=== PATIENT | male | born 1970 | race Caucasian/White ===

== ENCOUNTER 2023-11-20 13:16 | Emergency (ER) | payer SELFPAY ==
[2023-11-20] VITALS (15 sets, daily range): BP systolic 143–171; BP diastolic 68–104; PULSE 51–86; RESP 12–20; TEMP 36.3–37.2; O2SAT 97–98; BMI 36.7
--- NOTE | ~2023-11-20 | CT_ITS ---
EXAMINATION: CT MAXILLOFACIAL WITHOUT CONTRAST CLINICAL INFORMATION: Left upper dental infection. Abscess. COMPARISON: None available. TECHNIQUE: Multidetector helical imaging was performed in the axial plane with generation of coronal and sagittal reformatted images. This CT examination was performed using dose optimization techniques as appropriate, variously including the following: *Automated exposure control *Adjustment of mA and/or kV according to patient size (this includes techniques or standardized protocols for targeted exams where dose is matched to indication/reason for exam; i.e. extremities or head) *Use of iterative reconstruction technique DLP: 536 mGy-cm FINDINGS: FRONTAL SINUSES AND DRAINAGE PATHWAYS: Mild mucosal thickening of the frontal sinuses. The frontoethmoidal recesses are patent. MAXILLARY SINUSES AND DRAINAGE PATHWAYS: Mild mucosal thickening of the maxillary sinuses. The maxillary ostia and infundibula are partially opacified but patent. ETHMOID SINUSES: Moderate mucosal thickening of the ethmoid air cells. The ethmoid roofs appear symmetric and intact. SPHENOID SINUS AND DRAINAGE PATHWAYS: Minimal mucosal thickening of the sphenoid sinus. The sphenoethmoidal recesses are patent. The carotid canals are normally covered by bone. NASAL PASSAGE: Mild mucosal thickening within the nasal passages. Moderate rightward nasal septal deviation. ORBITS: Normal appearance of the osseous orbits. The lamina papyracea are intact. No significant preseptal or retrobulbar edema. Normal appearance of the globes. Normal symmetric appearance of the extraocular musculature. No abnormalities of the intraconal or extraconal adipose tissue. Normal appearance of the optic nerve sheaths. Normal appearance of the lacrimal glands. No orbital fluid collections. No abnormalities of the orbital apices. TEMPOROMANDIBULAR JOINTS: The temporomandibular joints remain well aligned. Normal appearance of the temporomandibular joints. ADDITIONAL RELEVANT FINDINGS: No evidence of maxillofacial bone fractures. The zygomatic arches remain intact. No nasal bone fracture. No evidence of mandibular or maxillary fracture. Extensive multifocal odontogenic enamel erosions and periapical lucencies. Minimal fat stranding in the soft tissues surrounding the maxillary and mandibular alveolar processes. No demonstrated discrete peripherally enhancing collection. The premaxillary, retromaxillary, pterygopalatine fossa, temporal fossa, and parapharyngeal adipose tissue is largely maintained. No demonstrated soft tissue abnormalities within the intrinsic tissues of the tongue. The visualized mastoid air cells and middle ear cavities remain well aerated. Limited evaluation of the intracranial structures without significant abnormalities. CT/CT facial bones w IV con IMPRESSION: 1. Extensive multifocal odontogenic disease. Minimal fat stranding in the soft tissues surrounding the maxillary and mandibular alveolar processes. No demonstrated discrete peripherally enhancing collection. 2. 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 Moderate rightward nasal septal deviation. Electronically signed by: Chandler Mcleod DO 11/20/2023 08:32 PM EDT
--- NOTE | ~2023-11-20 | CT_ITS ---
EXAMINATION: CT ABDOMEN AND PELVIS WITHOUT CONTRAST CLINICAL INFORMATION: Right flank pain. Rule out stone. COMPARISON: None available. TECHNIQUE: Multidetector volumetric imaging was performed from the superior aspect of the liver through the pubic symphysis. Sagittal and coronal reformatted images were obtained on the technologist's workstation. This CT examination was performed using dose optimization techniques as appropriate, variously including the following: *Automated exposure control *Adjustment of mA and/or kV according to patient size (this includes techniques or standardized protocols for targeted exams where dose is matched to indication/reason for exam; i.e. extremities or head) *Use of iterative reconstruction technique DLP: 768 mGy-cm FINDINGS: LUNG BASES: The lung bases appear clear, with no evidence of inflammation or nodules. LIVER, GALLBLADDER, AND BILIARY TREE: The liver appears unremarkable in size, shape, and attenuation. No focal hepatic lesion or biliary ductal dilatation is appreciated. Unremarkable appearance of the gallbladder. PANCREAS: Unremarkable SPLEEN: Unremarkable ADRENAL GLANDS: Unremarkable KIDNEYS AND URETERS: The kidneys appear unremarkable in size, shape, and attenuation. No hydronephrosis, hydroureter, or calculi seen. BLADDER: Unremarkable GASTROINTESTINAL TRACT: The small and large bowel appear unremarkable. No diverticulosis. Normal-appearing distal ileum and vermiform appendix. ABDOMINAL WALL: No significant hernia is appreciated. LYMPH NODES: No evidence of adenopathy by size criteria. VASCULAR: Unremarkable PELVIC VISCERA: Unremarkable OSSEOUS STRUCTURES: Unremarkable CT/CT abdomen pelvis wo IV con IMPRESSION: Normal CT scan of the abdomen and pelvis without oral or intravenous contrast. No evidence of urinary tract stone or hydronephrosis. Electronically signed by: Elmer Franks MD 11/20/2023 05:27 PM EDT
--- NOTE | 2023-11-20 13:34 | ED.GENADULT ---
HPI - General Adult General Chief complaint: Dental/Oral Stated complaint: Abscess in mouth Time Seen by Provider: 11/20/23 14:57 Source: patient Mode of arrival: ambulatory Limitations: no limitations History of Present Illness ED Provider: PASTOR ANDERSEN PA-C HPI narrative: 53 year old male presents to the ED today for evaluation of intermittent dental pain x years, worsening over the last week. Admits to fall with facial strike while carrying his special needs child years ago. Admits to breaking all of my teeth on impact. Admits to following up with dentist at that time however was unable to afford the appropriate dental procedures. He has not followed up with dentist since. He now reports worsening pain to his left upper teeth, extending into his left cheek. Reports pain with eating. He has been taking motrin without relief. Last dose this morning. Denies fever, chills, sore throat, difficulty swallowing, headache, vision changes, eye pain. Patient also adds that he has had right flank pain x6 months with associated increased urinary frequency. Denies dysuria, hematuria, abdominal pain, N/V. Related Data Previous Rx's ?Medication ?Instructions ?Recorded chlorhexidine gluconate 0.12 % 15 ml buccal BID #120 mL 11/20/23 mouthwash clindamycin HCl 150 mg capsule 450 mg (3 x 150 mg) PO TID 10 days 11/20/23 #90 caps tramadol 50 mg tablet 50 mg PO Q6H PRN pain #12 tabs 11/20/23 Allergies Allergy/AdvReac Type Severity Reaction Status Date / Time No Known Allergies Allergy Verified 11/20/23 13:33 Review of Systems Review of Systems: Constitutional: No fever, chills, fatigue, night sweats, weight changes ENT/Mouth: No ear pain, hearing loss, nasal congestion, sinus pain, rhinorrhea, sore throat, +dental/ sinus pain Eyes: No eye pain, swelling, redness, vision changes, discharge Cardio: No chest pain, palpitations, FORMAN, orthopnea, peripheral edema Pulm: No SOB, cough, sputum, wheezing, dyspnea, hemoptysis GI: No nausea, vomiting, hematemesis, abdominal pain, diarrhea, constipation, hematochezia, melena : No irregular bleeding, dysuria, frequency, urgency, hesitancy, hematuria, flank pain, urinary flow changes, urinary incontinence or retention MSK: No back pain, neck pain, joint pain, myalgias Skin: No lesions, rashes Neuro: No weakness, numbness, paresthesias, LOC, dizziness, headache Psych: No anxiety/panic, depression, SI/HI, AH/VH All other systems reviewed and are negative. [facility] Past Medical History Attestation statement: The following information was validated with the patient. Source: old records reviewed and nursing notes reviewed Social History Social History Advance Directives: No Advance Directives Information Provided: Yes Do you have a plan to hurt others: No Plan Physical Exam ED Vital Signs: Vital Signs - 24 hr 11/20/23 13:31 11/20/23 15:43 11/20/23 16:07 Temperature 98.9 F Pulse Rate 86 74 Respiratory Rate 18 20 12 Blood Pressure 171/104 H 158/97 H Pulse Oximetry 97 97 Oxygen Delivery Method Room Air Room Air 11/20/23 16:21 11/20/23 16:23 11/20/23 16:24 Temperature 97.7 F Pulse Rate 63 65 61 Respiratory Rate 18 13 13 Blood Pressure 157/87 H 147/84 H 148/89 H Pulse Oximetry 98 98 97 Oxygen Delivery Method Room Air Room Air Room Air 11/20/23 16:57 11/20/23 17:27 11/20/23 17:42 Temperature 98.4 F Pulse Rate 59 Respiratory Rate Blood Pressure 162/86 H 160/76 H 167/68 H Pulse Oximetry Oxygen Delivery Method 11/20/23 18:06 11/20/23 18:07 11/20/23 18:12 Temperature 97.4 F Pulse Rate 51 51 52 Respiratory Rate 16 Blood Pressure 143/77 H 143/77 H 146/83 H Pulse Oximetry 98 Oxygen Delivery Method Room Air 11/20/23 18:27 11/20/23 18:59 11/20/23 20:48 Temperature 98.9 F Pulse Rate 56 62 Respiratory Rate 18 Blood Pressure 154/84 H 143/81 H 143/81 H Pulse Oximetry Oxygen Delivery Method Room Air BMI result Body Mass Index 36.7 Const General: cooperative, comfortable and no acute distress Orientation/consciousness: patient oriented x3 Limitations: no limitations HENMT Other: + No facial edema. Tongue and lips wnl + multiple dental caries, poor dentition, and broken/ missing teeth. no obvious periapical swelling to the buccal or lingual ginginva. No pointing. No active bleeding/ discharge. TTP of left upper gingiva. No palpable fluctuance. + No edema to buccal mucosa. TTP over left maxillary sinus without noted deformity or fluctuance. + Posterior oropharynx without erythema/edema. Uvula midline. Controlling secretions and speaking in complete sentences + No submandublar or submental LAD. no cervical LAD. no anterior neck swelling. Head: Yes normal to inspection, Yes No palpable skull fracture present, Yes normocephalic and Yes atraumatic Ears: hearing grossly normal bilaterally, external ears normal, EAC's normal, mastoids normal and no periauricular adenopathy Eyes General: appearance normal, both eyes and all related structures Periorbital: periorbital findings normal Pupils: Equal, round and reactive pupils present Neck Neck: Yes normal visual inspection Resp Effort & Inspection: normal respiratory effort, able to speak in complete sentences and no stridor Auscultation: clear to auscultation bilaterally Cardio Rate: regular rate Rhythm: regular rhythm Skin General skin exam: no rashes or lesions noted Neuro General: patient oriented x3 and gait normal Cranial nerves: Yes Equal, round and reactive pupils present Course Course Course Narrative: This is a rapid medical exam performed by Chichi Nieves NP: Additional HPI, ROS, PE not included below will be deferred to primary provider. Patient is a 53-year-old male presenting to the ED with complaint of pain to upper jaw just left of midline, extending up into maxillary sinus. States is unable to afford dental care. Poor dentition, exam limited in triage. Plan: may need CT Reevaluation(s) Reevaluation #1: 5884 -- CBC with leukocytosis to 13.1 with left shift. No anemia. H&H stable. Chemistry without acute electrolyte abnormality requiring intervention. No AMANDA. Lactic acid elevated 2.3. Normal liver function. UA showing trace amount of blood and RBCs, negative leukocytes or nitrites. No bacteria seen. imaging pending. > given leukocytosis, elevated lactic and suspicion for infection, sepsis protocol initiated. Blood cultures already obtained. Will empirically treat with Unasyn. IV fluids ordered. Patient receiving morphine for pain control. 1853 -- repeat lactic 1.9. CT abdomen pelvis does not demonstrate any acute intraabdominal pathology. No evidence of renal stones or obstructive uropathy. > patient stable at the end of my shift. Sign-out given to Mayelin FAIRCHILD at the end of my shift pending CT results and disposition. Time: 20:39 Reevaluation #2: Received patient in sign out from ROLANDO Smith pending facial CT. Significant delay in radiologist interpretation. No abscess noted on CT. Will discharge patient home on antibiotics and provide with list of dental clinics. CT/CT facial bones w IV con IMPRESSION: 1. Extensive multifocal odontogenic disease. Minimal fat stranding in the soft tissues surrounding the maxillary and mandibular alveolar processes. No demonstrated discrete peripherally enhancing collection. 2. 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 Moderate rightward nasal septal deviation. Medications Administered Discontinued Medications Generic Name Dose Route Start Last Admin Trade Name Freq PRN Reason Stop Dose Admin Ampicillin Sodium/Sulbactam 100 mls @ 200 mls/hr 11/20/23 15:54 11/20/23 16:35 Sodium 3 gm/ Sodium Chloride IV 11/20/23 16:23 Infused ONCE ONE Infusion Sodium Chloride 3,189 mls @ 3,189 mls/hr 11/20/23 15:54 11/20/23 17:35 Ns 30 ml/kg infuse over 1 hr (3189 ml) 11/20/23 16:53 Infused IV Infusion .Q1H STA Iohexol 85 ml 11/20/23 16:49 11/20/23 16:51 Iohexol 350 Mg/Ml 100 Ml Infus..Btl IV 11/20/23 16:50 85 ml ONCE ONE Administration Morphine Sulfate 4 mg 11/20/23 15:01 11/20/23 15:43 Morphine Sulfate 4 Mg/Ml Cartridge IVPUSH 11/20/23 15:02 4 mg ONCE ONE Administration Protocol Medical Decision Making Medical Decision Making MDM Narrative: 53 year old male presents to the ED today for evaluation of intermittent dental pain x years, worsening over the last week. Patient hypertensive, vitals otherwise wnl. Afebrile. On oral examination, there is not noted facial edema. Tongue and lips wnl. There are multiple dental caries, poor dentition, and broken/ missing teeth. no obvious periapical swelling to the buccal or lingual ginginva. No pointing. No active bleeding/ discharge. TTP of left upper gingiva. No palpable fluctuance. No edema to buccal mucosa. TTP over left maxillary sinus without noted deformity or fluctuance. Posterior oropharynx without erythema/edema. Uvula midline. Controlling secretions and speaking in complete sentences. No submandublar or submental LAD. no cervical LAD. no anterior neck swelling. Differential includes dental abscess/ infection, sinusitis, facial abscess, osteomyelitis. Unlikely apthous stomatitis, herpes, sialadenitis, sialolithiasis, [employer], retropharyngeal abscess, deep neck infection, lymphoma, ludwigs angina. Plan for labs, pain control, CT facial bones, and re-evaluation. Differential Diagnosis Differential Diagnoses: The differential diagnosis associated with the presentation includes as above. Admission/Observation Not indicated. Lab Data MDM Lab Attestation statement: I reviewed the patient's lab results. As above 11/20/23 15:25 11/20/23 15:25 Labs: Lab Results 11/20/23 11/20/23 11/20/23 Range/Units 15:25 15:42 17:35 WBC 13.1 H (4.8-10.8) X10*3/uL RBC 5.43 (4.60-5.80) X10*6/uL Hgb 15.6 (14.0-18.0) g/dl Hct 46.7 (42.0-52.0) % MCV 86.0 (80.0-98.0) fL MCH 28.7 (27.0-33.0) pg MCHC 33.4 (31.0-36.0) g/dl RDW 13.2 (11.0-16.0) % Plt Count 366 (160-400) X10*3/uL MPV 8.3 L (9.4-12.4) fL Immature Gran % (Auto) 0.5 H (0.0-0.4) % Neut % (Auto) 73.6 H (45-73) % Lymph % (Auto) 20.0 (20-40) % [place] % (Auto) 5.0 (2-11) % Eos % (Auto) 0.5 (0-4) % Baso % (Auto) 0.4 (0-2) % Lymph # (Auto) 2.6 (1.2-4.9) X10*3/uL [place] # (Auto) 0.7 (0.1-1.2) X10*3/uL Eos # (Auto) 0.1 (0.0-0.4) X10*3/uL Baso # (Auto) 0.1 (0.0-0.2) X10*3/uL Abs Immat Gran (auto) 0.06 H (0.00-0.03) X10*3/uL Absolute Neuts (auto) 9.7 H (2.0-8.3) x10*3/uL Absolute Nucleated RBC 0.000 (0.0-0.012) X10*3/uL Nucleated RBC % (auto) 0.0 (0.0-0.2) /100WBC Sodium 138 (135-145) mmol/L Potassium 3.8 (3.3-5.1) mmol/L Chloride 99 (96-108) mmol/L Carbon Dioxide 26 (22-29) mmol/L Anion Gap 17 (12-20) BUN 14 (9-16) mg/dL Creatinine 0.78 (0.5-1.4) mg/dL Estim Creat Clear Calc 130.2 Estimated GFR > 60 Random Glucose 101 (60-115) mg/dL Lactic Acid 2.3 H* (0.5-2.0) mmol/L Lactic Acid F/U @ 2Hr 1.9 (0.5-2.0) mmol/L Calcium 9.9 (8.4-10.2) mg/dL Total Bilirubin 0.2 (0.0-1.0) mg/dL AST 15 (5-37) U/L ALT 18 (0-40) U/L Alkaline Phosphatase 86 (39-117) U/L Total Protein 7.7 (6.5-8.0) g/dL Albumin 4.5 (3.5-5.0) g/dL Urine Color Yellow Urine Appearance Clear Urine pH 7.5 (5.0-9.0) Ur Specific [place] 1.015 (1.005-1.025) Urine Protein Negative (Neg-Trace) mg/dL Urine Glucose (UA) Negative (Negative) mg/dL Urine Ketones Negative (Negative) mg/dL Urine Blood Trace H (Negative) Urine Nitrite Negative (Negative) Ur Leukocyte Esterase Negative (Negative) Urine RBC 6-10 H (0-2) /HPF Urine WBC 0-5 (0-5) /HPF Ur Squamous Epith Cells 0-2 (0-2) /HPF Urine Bacteria None Seen (None Seen) Hyaline Casts 0-2 (0-2) /LPF Independent Interpretation I performed an independent interpretation of an: CT Scan Interpretation: CT facial bones without noted fluid collection, agree with radiologist's interpretation. CT abd/pelvis without ureteral calculi, agree with radiologist's interpretation. Radiology Impression Discussion of test interpretation with radiology: I have reviewed the radiologist's reading. Radiologist Impression: EXAMINATION: CT ABDOMEN AND PELVIS WITHOUT CONTRAST CLINICAL INFORMATION: Right flank pain. Rule out stone. COMPARISON: None available. TECHNIQUE: Multidetector volumetric imaging was performed from the superior aspect of the liver through the pubic symphysis. Sagittal and coronal reformatted images were obtained on the technologist's workstation. This CT examination was performed using dose optimization techniques as appropriate, variously including the following: *Automated exposure control *Adjustment of mA and/or kV according to patient size (this includes techniques or standardized protocols for targeted exams where dose is matched to indication/reason for exam; i.e. extremities or head) *Use of iterative reconstruction technique DLP: 768 mGy-cm FINDINGS: LUNG BASES: The lung bases appear clear, with no evidence of inflammation or nodules. LIVER, GALLBLADDER, AND BILIARY TREE: The liver appears unremarkable in size, shape, and attenuation. No focal hepatic lesion or biliary ductal dilatation is appreciated. Unremarkable appearance of the gallbladder. PANCREAS: Unremarkable SPLEEN: Unremarkable ADRENAL GLANDS: Unremarkable KIDNEYS AND URETERS: The kidneys appear unremarkable in size, shape, and attenuation. No hydronephrosis, hydroureter, or calculi seen. BLADDER: Unremarkable GASTROINTESTINAL TRACT: The small and large bowel appear unremarkable. No diverticulosis. Normal-appearing distal ileum and vermiform appendix. ABDOMINAL WALL: No significant hernia is appreciated. LYMPH NODES: No evidence of adenopathy by size criteria. VASCULAR: Unremarkable PELVIC VISCERA: Unremarkable OSSEOUS STRUCTURES: Unremarkable CT/CT abdomen pelvis wo IV con IMPRESSION: Normal CT scan of the abdomen and pelvis without oral or intravenous contrast. No evidence of urinary tract stone or hydronephrosis. Electronically signed by: Elmer Franks MD 11/20/2023 05:27 PM EDT EXAMINATION: CT MAXILLOFACIAL WITHOUT CONTRAST CLINICAL INFORMATION: Left upper dental infection. Abscess. COMPARISON: None available. TECHNIQUE: Multidetector helical imaging was performed in the axial plane with generation of coronal and sagittal reformatted images. This CT examination was performed using dose optimization techniques as appropriate, variously including the following: *Automated exposure control *Adjustment of mA and/or kV according to patient size (this includes techniques or standardized protocols for targeted exams where dose is matched to indication/reason for exam; i.e. extremities or head) *Use of iterative reconstruction technique DLP: 536 mGy-cm FINDINGS: FRONTAL SINUSES AND DRAINAGE PATHWAYS: Mild mucosal thickening of the frontal sinuses. The frontoethmoidal recesses are patent. MAXILLARY SINUSES AND DRAINAGE PATHWAYS: Mild mucosal thickening of the maxillary sinuses. The maxillary ostia and infundibula are partially opacified but patent. ETHMOID SINUSES: Moderate mucosal thickening of the ethmoid air cells. The ethmoid roofs appear symmetric and intact. SPHENOID SINUS AND DRAINAGE PATHWAYS: Minimal mucosal thickening of the sphenoid sinus. The sphenoethmoidal recesses are patent. The carotid canals are normally covered by bone. NASAL PASSAGE: Mild mucosal thickening within the nasal passages. Moderate rightward nasal septal deviation. ORBITS: Normal appearance of the osseous orbits. The lamina papyracea are intact. No significant preseptal or retrobulbar edema. Normal appearance of the globes. Normal symmetric appearance of the extraocular musculature. No abnormalities of the intraconal or extraconal adipose tissue. Normal appearance of the optic nerve sheaths. Normal appearance of the lacrimal glands. No orbital fluid collections. No abnormalities of the orbital apices. TEMPOROMANDIBULAR JOINTS: The temporomandibular joints remain well aligned. Normal appearance of the temporomandibular joints. ADDITIONAL RELEVANT FINDINGS: No evidence of maxillofacial bone fractures. The zygomatic arches remain intact. No nasal bone fracture. No evidence of mandibular or maxillary fracture. Extensive multifocal odontogenic enamel erosions and periapical lucencies. Minimal fat stranding in the soft tissues surrounding the maxillary and mandibular alveolar processes. No demonstrated discrete peripherally enhancing collection. The premaxillary, retromaxillary, pterygopalatine fossa, temporal fossa, and parapharyngeal adipose tissue is largely maintained. No demonstrated soft tissue abnormalities within the intrinsic tissues of the tongue. The visualized mastoid air cells and middle ear cavities remain well aerated. Limited evaluation of the intracranial structures without significant abnormalities. CT/CT facial bones w IV con IMPRESSION: 1. Extensive multifocal odontogenic disease. Minimal fat stranding in the soft tissues surrounding the maxillary and mandibular alveolar processes. No demonstrated discrete peripherally enhancing collection. 2. 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 Moderate rightward nasal septal deviation. Electronically signed by: Chandler Mcleod DO 11/20/2023 08:32 PM EDT External Record Review External record reviewed: Inpatient record Prescription Management I considered prescription management with: Pain Medication (tramadol) and Antibiotic (clindamycin) Social Determinants Patient?s care significantly limited by Social Determinants of Health including: Other Social Determinant of Health Critical Care Time Critical Care Time Critical Care Time: Yes Total Critical Care Time: 46 Attestation: Critical care time in the amount of 46 minutes has been provided to the patient in terms of direct patient care, frequent reevaluation on IV morphine, review and interpretation of medical data and results, and management of potentially life-threatening conditions. This is all outside of any medical procedures. Discharge Plan Discharge Clinical Impression: Dental infection Patient Disposition: Home, Self-Care Instructions: Dental Abscess (ED) Additional Instructions: You were evaluated in ED today for dental pain. You have a dental infection. Clindamycin is an antibiotic that has been sent to your pharmacy for treatment. Take this as prescribed and do not skip any doses. Take this to completion or the infection may persist or worsen. Take tylenol/ motrin at home as needed for pain. Tramadol is a pain medication that has been sent to your pharmacy for you to take for break-through pain. Use this with caution. YOU NEED TO FOLLOW UP WITH A DENTIST. You have been provided with a referral to [facility]. They are currently taking new clients. Call them to make an appointment. They will not call you. Return with new or worsening symptoms. In the case of an emergency call 911. [facility]: [phone] [address] [facility] [address] Call or visit any of the clinics below to establish care with a dentist: [facility] [address] [place] [address] [facility] [address] [facility], [address] Darren Longoria [address] [place] [address] [facility] [address] [place] [address] [facility] [address] [place] [address] [address] [place] [address] Prescriptions: New clindamycin HCl 150 mg capsule 450 mg PO TID 10 Days Qty: 90 0RF chlorhexidine gluconate 0.12 % mouthwash 15 ml buccal BID Qty: 120 0RF tramadol 50 mg tablet 50 mg PO Q6H PRN (Reason: pain) Qty: 12 0RF Interventions: ED Discharge Assessment Last Done: 11/20/23 20:48 Discharge Date/Time: 11/20/23 20:48 Print Language: Bolivian
[2023-11-20 15:31] LABS: MANUAL DIFF FLAG NO
[2023-11-20 15:33] LABS: Basophils Absolute Auto 0.1 X10*3/uL (0.0-0.2); Basophils Percent Auto 0.4 % (0-2); Eosinophils Absolute Auto 0.1 X10*3/uL (0.0-0.4); Eosinophils Percent Auto 0.5 % (0-4); Hematocrit 46.7 % (42.0-52.0); Hemoglobin 15.6 g/dl (14.0-18.0); Imm Gran Abs Auto 0.06 X10*3/uL (0.00-0.03); Imm Gran Pct Auto 0.5 % (0.0-0.4); Lymphocytes Absolute Auto 2.6 X10*3/uL (1.2-4.9); Mean Corpuscular HGB Conc 33.4 g/dl (31.0-36.0); Mean Corpuscular Hemoglobin 28.7 pg (27.0-33.0); Mean Platelet Volume 8.3 fL (9.4-12.4); Monocytes Absolute Auto 0.7 X10*3/uL (0.1-1.2); Neutrophils Absolute Auto 9.7 x10*3/uL (2.0-8.3); Neutrophils Percent Auto 73.6 % (45-73); Platelet Count 366 X10*3/uL (160-400); Red Blood Count 5.43 X10*6/uL (4.60-5.80); Red Cell Distribution Width 13.2 % (11.0-16.0); White Blood Count 13.1 X10*3/uL (4.8-10.8)
[2023-11-20] MEDS: Morphine Sulfate 4 MG/ML CARTRIDGE IVPUSH (15:43)
[2023-11-20 15:50] LABS: Appearance Urine Clear; Color Urine Yellow; Glucose Urine UA Negative (Negative); Leukocyte Esterase Urine Negative (Negative); Nitrite Urine Negative (Negative); PH 7.5 (5.0-9.0); Specific Gravity - Urine 1.015 (1.005-1.025); UMIC TRIGGER UACC YES; Urine Blood Trace (Negative); Urine Ketones Negative (Negative); Urine Protein Negative (Neg-Trace)
[2023-11-20 15:50] LABS: Alanine Aminotransferase 18 U/L (0-40); Albumin Level 4.5 g/dL (3.5-5.0); Alkaline Phosphatase 86 U/L (39-117); Anion Gap 17 (12-20); Aspartate Amino Transferase 15 U/L (5-37); Bilirubin Total 0.2 mg/dL (0.0-1.0); Blood Urea Nitrogen 14 mg/dL (9-16); Calcium 9.9 mg/dL (8.4-10.2); Carbon Dioxide 26 mmol/L (22-29); Chloride 99 mmol/L (96-108); Creatinine Clr Calc Pharmacy 130.2; Estimated Glomerular Filt Rate > 60; Glucose Random 101 mg/dL (60-115); Potassium 3.8 mmol/L (3.3-5.1); Sodium 138 mmol/L (135-145); Total Protein 7.7 g/dL (6.5-8.0)
[2023-11-20 15:54] LABS: Lactic Acid 2.3 mmol/L (0.5-2.0)
[2023-11-20 15:55] LABS: Bacteria Urine None Seen (None Seen); Hyaline Casts Urine 0-2 /LPF (0-2); Squamous Epithelial Cell Urine 0-2 /HPF (0-2); WBC Urine 0-5 /HPF (0-5)
[2023-11-20] MEDS: Ampicillin Sodium/Sulbactam Na 3 GM in 0.9 % Sodium Chloride 100 ML IV (16:05)
--- NOTE | 2023-11-20 16:21 | ECG_ITS ---
Test Reason : SEPSIS WORKUP Blood Pressure : / mmHG Vent. Rate : 058 BPM Atrial Rate : 058 BPM P-R Int : 144 ms QRS Dur : 088 ms QT Int : 418 ms P-R-T Axes : 044 005 005 degrees QTc Int : 410 ms Sinus bradycardia Otherwise normal ECG No previous ECGs available Referred By: Sarah Henning Electronically Signed By:JOE HUNTER
[2023-11-20] MEDS: iohexoL 350 MG/ML 100 ML INFUS..BTL 85 ML IV (16:51)
[2023-11-20 17:29] LABS: Reflex Lactate? Lactic Acid Added
--- NOTE | 2023-11-20 17:49 | PC.NURSE ---
pt brought back to exam room at 1457-- ROLANDO Henning evaluated pt, it was established that pt will need CT imaging of the face.Vital signs stable from triage, a febrile , nontachycardic. 20g IV plaved in R- bicep, labs obtained, including lactic and blood cultures x2. Labs returned significant for WBC of 13.1, critcial value for lactic acid rec (2.3). Sepsis protocol initiated at 1554. a second IV access site was obtained in pt r-hand. Fluid bolus initiaited at 1607, and ampicillin given 1605, ended at 1635. Pt fluids were paused while pt was taken to CT for imaging. pt rec CT face as well as abdomen/Pelvis for flank pain (x months) time in ct approx 25min. upon return to exam room fluid bolus was restarted. VSS at this time. pt medicated for 10/10 face pain with 4mg MsO4, bringing pt pain score to 7/10 on PRN follow up. pt calm and cooperative with care- awaiting CT reads, as well as labs, call alba within reach
[2023-11-20 18:03] LABS: ~Lactic Acid-LAB USE ONLY 1.9 mmol/L (0.5-2.0)
--- NOTE | 2023-11-20 19:07 | PC.NURSE ---
called [facility] [phone] , [phone], and [phone]- attempted to get status on CT Facial Bones- all three numbers routed t/w to voice mail- GURINDER Nieves Notified
--- NOTE | 2023-11-20 19:22 | PC.NURSE ---
spoke with Nikos in Radiology- will contact [facility] re: CT facial bones
--- NOTE | 2023-11-20 20:12 | PC.NURSE ---
CT facial bones still pending radiology read.followed up withhSarahe in radiology who again reached out re: status- images were taken 4 hours ago- Abdomen/pelvis resulted. plastering supervisor aware. incident report to be filed
--- NOTE | 2023-11-20 20:21 | PC.NURSE ---
incident report [id number] filed
== END 2023-11-20 20:48 | disposition home or self-care (01) ==
PROVIDERS: Physician Assistant Medical; Emergency Provider Emergency Medicine
DX: K04.7 Periapical abscess without sinus (principal); K08.89 Other specified disorders of teeth and supporting structures; R35.0 Frequency of micturition; R10.9 Unspecified abdominal pain; R00.1 Bradycardia, unspecified; R51.9 Headache, unspecified; Z79.899 Other long term (current) drug therapy
CPT/HCPCS: 36415; 70487; 74176; 80053; 81001; 83605; 85025; 87040; 93005; 96365; 96366; 96375; 99284; 99285; J0295; J2270; Q9967

== ENCOUNTER 2024-06-04 11:37 | Emergency (ER) | payer SELFPAY ==
--- NOTE | ~2024-06-04 | US_ITS ---
EXAMINATION: US ABDOMEN LIMITED CLINICAL INFORMATION: Right upper quadrant tenderness. COMPARISON: None. Correlation made with CT abdomen and pelvis 11/20/2023. TECHNIQUE: Real-time imaging of the right upper quadrant abdominal viscera. FINDINGS: PANCREAS: Visualized portions are unremarkable. LIVER: Liver is normal in size, with right lobe measuring 16.0). The liver contour is normal. Diffusely increased parenchymal echogenicity, consistent with steatosis. No suspicious focal hepatic lesion. There is a simple cyst in the right lobe measuring 0.6 cm. There is no intrahepatic biliary duct dilatation seen. GALLBLADDER: The gallbladder is physiologically distended without evidence of stones, sludge, polyps, wall thickening or pericholecystic fluid. 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 Negative sonographic Stephens's sign. COMMON BILE DUCT: Normal in caliber measuring 0.4 cm in diameter. RIGHT KIDNEY: No hydronephrosis. No renal calculi or focal parenchymal lesions. The kidney measures 11.3 cm in maximum dimension. FREE FLUID: None. US/US abdomen limited IMPRESSION: 1. Diffusely increased hepatic echogenicity suggesting steatosis. No suspicious liver lesion. 2. No evidence of gallbladder inflammation. 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 Electronically signed by: Joel Mares MD 06/04/2024 01:38 PM EDT
--- NOTE | ~2024-06-04 | CT_ITS ---
EXAMINATION: CT ABDOMEN AND PELVIS WITH CONTRAST CLINICAL INFORMATION: Upper abdominal pain. Vomiting. COMPARISON: November 20, 2023 TECHNIQUE: Multidetector volumetric images were obtained from the superior aspect of the liver through the pubic symphysis following administration 85 mL of Omnipaque 350 intravenous contrast. Sagittal and coronal reformatted images were obtained on the technologist's workstation. Oral contrast: No This CT examination was performed using dose optimization techniques as appropriate, variously including the following: *Automated exposure control *Adjustment of mA and/or kV according to patient size (this includes techniques or standardized protocols for targeted exams where dose is matched to indication/reason for exam; i.e. extremities or head) *Use of iterative reconstruction technique. DLP: 757 mGy centimeter. FINDINGS: LUNG BASES: Patchy groundglass, lung bases. LIVER, GALLBLADDER, AND BILIARY TREE: Liver measures 17 cm. There are few scattered less than 3 mm hypodensities too small to be fully characterized. The portal veins, hepatic veins and intrahepatic portion of the IVC are patent. No pericholecystic fluid collection or gallbladder wall thickening. Common bile duct measures 4 mm. PANCREAS: No peripancreatic fluid collection. No focal mass. No main pancreatic ductal dilatation. Punctate calcifications in the body. SPLEEN: 7 cm. No focal lesion. ADRENAL GLANDS: No nodular lesions. KIDNEYS AND URETERS: No renal mass. No hydronephrosis. No gross nephrolithiasis. Normal enhancement pattern of the renal parenchyma. BLADDER: Fluid-filled. GASTROINTESTINAL TRACT: There is edema pattern around the gastric antrum with questionable irregular wall thickening. No intestinal obstruction pattern. Appendix appears normal. Gas and fluid-filled prominent small bowel loops. Abundant stool, large intestine. No pneumatosis intestinalis. Few diverticulum, sigmoid colon. No ascites. No pneumoperitoneum. No peripheral enhancing fluid collection, peritoneal cavity. ABDOMINAL WALL: Small fat-containing umbilical hernia. Diastases abdominal rectus muscles in the periumbilical region. LYMPH NODES: Prominent nonspecific lymph nodes in the mesenteric and retroperitoneum. VASCULAR: Mixed plaques abdominal aorta wall and iliac arteries without aneurysm or dissection. PELVIC VISCERA: Nonenlarged prostate gland. OSSEOUS STRUCTURES: Multilevel lower thoracic and lumbar spondylosis. CT/CT abdomen pelvis w IV con IMPRESSION: Consider peptic ulcer disease in the correct clinical settings. Hepatomegaly, mild. Probable old chronic mild pancreatitis. Subcentimeter hepatic cyst versus hamartoma. Fleischner guidelines were followed. Electronically signed by: Migue Glass MD 06/04/2024 02:57 PM EDT RP
[2024-06-04 11:41] VITALS: BP 146/95; PULSE 88; RESP 19; TEMP 36.9; O2SAT 98; BMI 36.0
--- NOTE | 2024-06-04 11:43 | ECG_ITS ---
Test Reason : CHEST PAIN Blood Pressure : */* mmHG Vent. Rate : 74 BPM Atrial Rate : 74 BPM P-R Int : 138 ms QRS Dur : 88 ms QT Int : 380 ms P-R-T Axes : 35 6 18 degrees QTcB Int : 421 ms Normal sinus rhythm Normal ECG When compared with ECG of 20-Nov-2023 16:26, No significant change was found Referred By: Sarah Henning Electronically Signed By: KRISTINE OROPEZA
--- NOTE | 2024-06-04 12:16 | ED.GENADULT ---
HPI - General Adult General Chief complaint: Abdominal Pain Stated complaint: abd pain chest pain arm numbness Time Seen by Provider: 06/04/24 12:16 Source: patient, RN notes reviewed and old records reviewed Mode of arrival: ambulatory Limitations: no limitations History of Present Illness ED Provider: Ezeqiuel PALOMINO narrative: Patient is a 54-year-old male with no reported past medical history presenting to the emergency department with complaint of worsening right upper quadrant abdominal pain for the past week with associated nausea, vomiting, and diarrhea. States last night pain radiated to his chest as well. Denies fevers. Reports urinary frequency but denies dysuria, hematuria , back or flank pain. Denies hematemesis, hematochezia, melena. Denies prior abdominal surgeries. States has been having similar pain for years which comes and goes but this is the worst. MD complaint: abdominal pain Onset (ago): week(s) Location: abdomen Radiation: non-radiation Severity: severe Quality: aching Pain Consistency: constant Associated symptoms: nausea/vomiting Treatments prior to arrival: none Related Data Previous Rx's ?Medication ?Instructions ?Recorded chlorhexidine gluconate 0.12 % 15 ml buccal BID #120 mL 11/20/23 mouthwash clindamycin HCl 150 mg capsule 450 mg (3 x 150 mg) PO TID 10 days 11/20/23 #90 caps tramadol 50 mg tablet 50 mg PO Q6H PRN pain #12 tabs 11/20/23 omeprazole 40 mg capsule,delayed 40 mg PO DAILY #30 caps 06/04/24 release sucralfate 1 gram tablet 1 g PO QID #28 tabs 06/04/24 Allergies Allergy/AdvReac Type Severity Reaction Status Date / Time No Known Allergies Allergy Verified 06/04/24 11:41 Review of Systems Review of Systems: As per hPI Yes all other systems are reviewed and are negative Constitutional: Constitutional: Reports as per HPI PMFSH Social History Social History Smoked in Last 30 Days: No Use of substances other than those prescribed or required for medical reasons: No Advance Directives: No Advance Directives Information Provided: Yes Do you have a plan to hurt others: No Plan Physical Exam ED Vital Signs: Vital Signs - 24 hr 06/04/24 11:41 06/04/24 12:51 06/04/24 15:02 Temperature 98.4 F 97.7 F Pulse Rate 88 60 59 Respiratory Rate 19 16 16 Blood Pressure 146/95 H 153/82 H 175/92 H Pulse Oximetry 98 97 99 Oxygen Delivery Method Room Air Room Air BMI result Body Mass Index 36.0 Vital signs have been reviewed and appear to be correct. Blood pressure elevated. Heart rate normal. Respiratory rate normal. Temperature normal. Oxygen saturation normal. Const General: cooperative, healthy appearing and no acute distress Orientation/consciousness: oriented to person, oriented to place, oriented to time and patient oriented x3 Limitations: no limitations [facility] Head: Yes normocephalic and Yes atraumatic Ears: external ears normal General nose exam: Normal external nose present Face and sinus: Yes face symmetric Mouth: oropharynx normal and moist mucous membranes Throat: Yes uvula midline Eyes Pupils: Equal, round and reactive pupils present Neck Neck: Yes normal visual inspection and Yes supple Resp Effort & Inspection: normal respiratory effort and able to speak in complete sentences Auscultation: clear to auscultation bilaterally Cardio Rate: regular rate Rhythm: regular rhythm Heart sounds: S1 normal heart sound present and S2 normal heart sound present GI Palpation (GI): Soft to palpation and Tenderness to palpation present (GI) in the RUQ Auscultation: normoactive bowel sounds General: Yes no CVA tenderness Back/Spine/Pelvis Back: no CVA tenderness Skin General skin exam: elasticity normal and turgor normal Neuro General: oriented to person, oriented to place, oriented to time, patient oriented x3, moves all extremities, no focal motor deficits and CN's II-XI intact bilaterally Cranial nerves: Yes Equal, round and reactive pupils present Cognition (Neuro): normal cognition Extrem General: Yes full ROM, Yes no pedal edema and Yes no calf tenderness Psych Mental Status: mental status grossly normal Affect: normal affect Thought process: Normal thought process present Medications Administered Discontinued Medications Generic Name Dose Route Start Last Admin Trade Name Freq PRN Reason Stop Dose Admin Iohexol 100 ml 06/04/24 14:36 06/04/24 14:36 Iohexol 350 Mg/Ml 100 Ml Infus..Btl IV 06/04/24 14:37 85 ml ONCE ONE Administration Morphine Sulfate 4 mg 06/04/24 12:27 06/04/24 12:47 Morphine Sulfate 4 Mg/Ml Cartridge IVPUSH 06/04/24 12:28 4 mg ONCE ONE Administration Protocol Ondansetron HCl 4 mg 06/04/24 12:27 06/04/24 12:47 Ondansetron Hcl 4 Mg/2 Ml Vial IVPUSH 06/04/24 12:28 4 mg ONCE ONE Administration Pantoprazole Sodium 40 mg 06/04/24 14:55 06/04/24 15:02 Pantoprazole Sodium 40 Mg/10 Ml Vial IVPUSH 06/04/24 14:56 40 mg ONCE ONE Administration Medical Decision Making Medical Decision Making [facility] Narrative: Patient is a 54-year-old male with no reported past medical history presenting to the emergency department with complaint of worsening right upper quadrant abdominal pain for the past week with associated nausea, vomiting, and diarrhea. On exam patient is awake, A+Ox3, VS WNL, afebrile, normal neurological exam without focal deficits, physical exam findings as above. Given reported symptoms and physical exam findings, initial differential includes but is not limited to cholecystitis, choledocholithiasis, biliary colic, gastritis, PUD, enteritis, viral illness. Less likely ACS but will check troponin and EKG. Labs notable for leukocytosis, negative troponin, normal transaminases and Tbili, normal alk phos. Urinalysis is without evidence of infection. U/S notable for diffusely increased hepatic echogenicity, no evidence of gallbladder inflammation. CT A/P consistent with PUD. My interpretation is in agreement with the radiologist's interpretation. Case discussed with my attending, Dr. Byrd, who feels leukocytosis likely due to vomiting for the past week. Case also discussed with Dr. Heller who is in agreement with discharge on omeprazole and sucralfate. plan discussed with patient who is agreeable and verbalized understanding of plan. Return precautions discussed at bedside. Will refer to GI for further evaluation. Differential Diagnosis Differential Diagnoses: The differential diagnosis associated with the presentation includes As per [facility] Admission/Observation Consideration of admission/observation: Escalation of care including admission/observation considered Patient would have been admitted to the hospital had their work up had any findings where hospital admission was appropriate and their clinical presentation warranted hospital admission. Lab Data [facility] Lab Attestation statement: I reviewed the patient's lab results. As per [facility] 06/04/24 12:09 06/04/24 12:09 Labs: Lab Results 06/04/24 06/04/24 06/04/24 Range/Units 02:31 12:09 12:53 WBC 17.8 H (4.8-10.8) X10*3/uL RBC 5.42 (4.60-5.80) X10*6/uL Hgb 15.8 (14.0-18.0) g/dl Hct 46.9 (42.0-52.0) % MCV 86.5 (80.0-98.0) fL MCH 29.2 (27.0-33.0) pg MCHC 33.7 (31.0-36.0) g/dl RDW 13.1 (11.0-16.0) % Plt Count 400 (160-400) X10*3/uL MPV 8.3 L (9.4-12.4) fL Immature Gran % (Auto) 0.5 H (0.0-0.4) % Neut % (Auto) 79.2 H (45-73) % Lymph % (Auto) 15.1 L (20-40) % [place] % (Auto) 4.4 (2-11) % Eos % (Auto) 0.5 (0-4) % Baso % (Auto) 0.3 (0-2) % Lymph # (Auto) 2.7 (1.2-4.9) X10*3/uL [place] # (Auto) 0.8 (0.1-1.2) X10*3/uL Eos # (Auto) 0.1 (0.0-0.4) X10*3/uL Baso # (Auto) 0.1 (0.0-0.2) X10*3/uL Abs Immat Gran (auto) 0.08 H (0.00-0.03) X10*3/uL Absolute Neuts (auto) 14.1 H (2.0-8.3) x10*3/uL Absolute Nucleated RBC 0.000 (0.0-0.012) X10*3/uL Nucleated RBC % (auto) 0.0 (0.0-0.2) /100WBC Sodium 141 (135-145) mmol/L Potassium 4.1 (3.3-5.1) mmol/L Chloride 100 (96-108) mmol/L Carbon Dioxide 30 H (22-29) mmol/L Anion Gap 15 (12-20) BUN 19 H (9-16) mg/dL Creatinine 0.78 (0.5-1.4) mg/dL Estim Creat Clear Calc 127.5 Estimated GFR > 60 Random Glucose 134 H (60-115) mg/dL Calcium 10.1 (8.4-10.2) mg/dL Magnesium 2.2 (1.6-2.6) mg/dL Total Bilirubin 0.5 (0.0-1.0) mg/dL Direct Bilirubin 0.2 (0.0-0.5) mg/dL AST 15 (5-37) U/L ALT 17 (0-40) U/L Alkaline Phosphatase 87 (39-117) U/L Troponin I High Sens 4.5 (<3.5-35.0) ng/L Total Protein 8.1 H (6.5-8.0) g/dL Albumin 4.6 (3.5-5.0) g/dL Lipase 40 (8-78) U/L Urine Color Yellow Urine Appearance Cloudy Urine pH 8.5 (5.0-9.0) Ur Specific [place] 1.020 (1.005-1.025) Urine Protein Trace (Neg-Trace) mg/dL Urine Glucose (UA) Negative (Negative) mg/dL Urine Ketones Negative (Negative) mg/dL Urine Blood Small (1+) H (Negative) Urine Nitrite Negative (Negative) Ur Leukocyte Esterase Negative (Negative) Urine RBC 11-20 H (0-2) /HPF Urine WBC 0-5 (0-5) /HPF Ur Squamous Epith Cells 0-2 (0-2) /HPF Urine Bacteria None Seen (None Seen) Hyaline Casts 0-2 (0-2) /LPF Influenza Type A (PCR) NEGATIVE (Negative) Influenza Type B (PCR) NEGATIVE (Negative) RSV RNA Qual (PCR) NEGATIVE (Negative) SARS-CoV-2 RNA (RT-PCR) NEGATIVE (Negative) Independent Interpretation I performed an independent interpretation of an: Ultrasound and CT Scan Interpretation: U/S notable for diffusely increased hepatic echogenicity, no evidence of gallbladder inflammation. CT A/P consistent with PUD. Radiology Impression Discussion of test interpretation with radiology: I have reviewed the radiologist's reading. Radiologist Impression: US/US abdomen limited IMPRESSION: 1. Diffusely increased hepatic echogenicity suggesting steatosis. No suspicious liver lesion. 2. No evidence of gallbladder inflammation. 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 CT/CT abdomen pelvis w IV con IMPRESSION: Consider peptic ulcer disease in the correct clinical settings. Hepatomegaly, mild. Probable old chronic mild pancreatitis. Subcentimeter hepatic cyst versus hamartoma. External Record Review External record reviewed: Inpatient record, Office record and Outpatient record Prescription Management I considered prescription management with: Other Discharge Plan Discharge Clinical Impression: Abdominal pain Patient Disposition: Still a Patient Instructions: Sucralfate (By mouth), Omeprazole (By mouth), Peptic Ulcer (ED), Diet for Stomach Ulcers and Gastritis (ED), Abdominal Pain (ED) Additional Instructions: You have been evaluated in the emergency department today for abdominal pain. Your evaluation did not show evidence of medical conditions requiring emergent intervention at this time. Please schedule an appointment with your primary care physician. You are being prescribed medications for your abdominal pain, take these as prescribed. Return to the emergency department if you experience worsening or uncontrolled pain, fevers 100.4? F or greater, recurrent vomiting, inability to tolerate food or fluids by mouth, bloody stools or vomit, black or tarry stools, or any other concerning symptoms. Prescriptions: New omeprazole 40 mg capsule,delayed release(DR/EC) 40 mg PO DAILY Qty: 30 0RF sucralfate 1 gram tablet 1 g PO QID Qty: 28 0RF Rx Instructions: Take 1 hour before meals and before bedtime No Action clindamycin HCl 150 mg capsule 450 mg PO TID 10 Days Qty: 90 0RF chlorhexidine gluconate 0.12 % mouthwash 15 ml buccal BID Qty: 120 0RF tramadol 50 mg tablet 50 mg PO Q6H PRN (Reason: pain) Qty: 12 0RF Referrals: [facility] [place] [facility] [Provider Group] Pedro Heller MD [Physician] - Print Language: Frisian
[2024-06-04 12:26] LABS: MANUAL DIFF FLAG NO
[2024-06-04 12:33] LABS: Basophils Absolute Auto 0.1 X10*3/uL (0.0-0.2); Basophils Percent Auto 0.3 % (0-2); Eosinophils Absolute Auto 0.1 X10*3/uL (0.0-0.4); Eosinophils Percent Auto 0.5 % (0-4); Hematocrit 46.9 % (42.0-52.0); Hemoglobin 15.8 g/dl (14.0-18.0); Imm Gran Abs Auto 0.08 X10*3/uL (0.00-0.03); Imm Gran Pct Auto 0.5 % (0.0-0.4); Lymphocytes Absolute Auto 2.7 X10*3/uL (1.2-4.9); Lymphocytes Percent Auto 15.1 % (20-40); Mean Corpuscular HGB Conc 33.7 g/dl (31.0-36.0); Mean Corpuscular Hemoglobin 29.2 pg (27.0-33.0); Mean Corpuscular Volume 86.5 fL (80.0-98.0); Mean Platelet Volume 8.3 fL (9.4-12.4); Monocytes Absolute Auto 0.8 X10*3/uL (0.1-1.2); Monocytes Percent Auto 4.4 % (2-11); Neutrophils Absolute Auto 14.1 x10*3/uL (2.0-8.3); Neutrophils Percent Auto 79.2 % (45-73); Platelet Count 400 X10*3/uL (160-400); Red Blood Count 5.42 X10*6/uL (4.60-5.80); Red Cell Distribution Width 13.1 % (11.0-16.0); White Blood Count 17.8 X10*3/uL (4.8-10.8)
[2024-06-04 12:46] LABS: Alanine Aminotransferase 17 U/L (0-40); Albumin Level 4.6 g/dL (3.5-5.0); Alkaline Phosphatase 87 U/L (39-117); Anion Gap 15 (12-20); Aspartate Amino Transferase 15 U/L (5-37); Bilirubin Direct 0.2 mg/dL (0.0-0.5); Bilirubin Total 0.5 mg/dL (0.0-1.0); Blood Urea Nitrogen 19 mg/dL (9-16); Calcium 10.1 mg/dL (8.4-10.2); Carbon Dioxide 30 mmol/L (22-29); Chloride 100 mmol/L (96-108); Creatinine Clr Calc Pharmacy 127.5; Estimated Glomerular Filt Rate > 60; Glucose Random 134 mg/dL (60-115); Lipase 40 U/L (8-78); Magnesium 2.2 mg/dL (1.6-2.6); Potassium 4.1 mmol/L (3.3-5.1); Sodium 141 mmol/L (135-145); Total Protein 8.1 g/dL (6.5-8.0)
[2024-06-04] MEDS: Morphine Sulfate 4 MG/ML CARTRIDGE IVPUSH (12:47)
[2024-06-04] MEDS: ondansetron HCL 4 MG/2 ML VIAL IVPUSH (12:47)
[2024-06-04 12:51] VITALS: BP 153/82; PULSE 60; RESP 16; O2SAT 97
[2024-06-04 12:51] LABS: Troponin-I High Sensitivity 4.5 ng/L (<3.5-35.0)
--- NOTE | 2024-06-04 12:51 | PC.NURSE ---
20gIV placed in the left hand - medication administered per provider order. US being completed at this time.
[2024-06-04 13:07] LABS: Appearance Urine Cloudy; Color Urine Yellow; Glucose Urine UA Negative (Negative); Leukocyte Esterase Urine Negative (Negative); Nitrite Urine Negative (Negative); PH 8.5 (5.0-9.0); UMIC TRIGGER UACC YES; Urine Blood Small (1+) (Negative); Urine Ketones Negative (Negative); Urine Protein Trace mg/dL (Neg-Trace)
[2024-06-04 13:11] LABS: Bacteria Urine None Seen (None Seen); Hyaline Casts Urine 0-2 /LPF (0-2); Squamous Epithelial Cell Urine 0-2 /HPF (0-2); WBC Urine 0-5 /HPF (0-5)
[2024-06-04 13:45] LABS: Influenza A PCR NEGATIVE (Negative); Influenza B PCR NEGATIVE (Negative); Resp Syncy Virus RNA Qual PCR NEGATIVE (Negative); SARS COV2 PCR INHOUSE NEGATIVE (Negative)
[2024-06-04] MEDS: iohexoL 350 MG/ML 100 ML INFUS..BTL IV (14:36)
[2024-06-04 15:02] VITALS: BP 175/92; PULSE 59; RESP 16; TEMP 36.5; O2SAT 99
[2024-06-04] MEDS: Pantoprazole Sodium 40 MG/10 ML VIAL IVPUSH (15:02)
[2024-06-04] MEDS: Lidocaine HCl Viscous 2 % 15 ML SOLUTION MUCOUS MEM (16:34)
[2024-06-04] MEDS: Magnesium Hydrox/Alum Hydrox 30 ML ORAL.SUSP PO (16:34)
[2024-06-04 16:40] VITALS: BP 176/99; PULSE 60; RESP 16; TEMP 36.5; O2SAT 99
[2024-06-04 16:44] VITALS: BP 176/99; PULSE 60; RESP 16; TEMP 36.5; O2SAT 99
== END 2024-06-04 16:52 | disposition still patient (30) ==
PROVIDERS: Physician Assistant Medical; Emergency Provider Student in an Organized Health Care Education/Training Program
DX: R10.11 Right upper quadrant pain (principal); R11.2 Nausea with vomiting, unspecified; Z03.818 Encounter for observation for suspected exposure to other biological agents ruled out; Z79.899 Other long term (current) drug therapy
CPT/HCPCS: 0241U; 74177; 76705; 80048; 80076; 81001; 81003; 83690; 83735; 84484; 85025; 93005; 96374; 96375; 99284; 99285; J2270; J2405; J2470; Q9967

== ENCOUNTER → 2024-06-04 11:43 | Outpatient (BNV) | payer SELFPAY | PROVIDERS: Emergency Provider Student in an Organized Health Care Education/Training Program; Visit Provider Internal Medicine | DX: R07.9 Chest pain, unspecified (principal) | CPT/HCPCS: 93010 ==

== ENCOUNTER → 2024-06-04 12:27 | Outpatient (BNV) | payer SELFPAY | PROVIDERS: Emergency Provider Student in an Organized Health Care Education/Training Program; Visit Provider Radiology Diagnostic Radiology | DX: K76.89 Other specified diseases of liver (principal); R11.10 Vomiting, unspecified | CPT/HCPCS: 74177; 76705 ==